=== PATIENT | male | born 1970 | race Caucasian/White ===

== ENCOUNTER 2021-08-26 15:23 | Inpatient (IN) | payer MEDICARE, OTHER ==
[~2021-08-26] VITALS: Ht 172.7 cm; Wt 70.3 kg
[2021-08-26 16:29] LABS: HEMOGLOBIN 12.9 gm/dl (14.0-17.5); RED BLOOD COUNT 4.57 M/UL (4.20-5.50); WHITE BLOOD COUNT 5.9 K/UL (4.5-11.0)
[2021-08-26 17:04] LABS: BUN/CREATININE RATIO 7 (0-10)
[2021-08-26] MEDS ORDERED: GABAPENTIN400 MG PO (22:16)
[2021-08-26] MEDS ORDERED: FUROSEMIDE80 MG PO (22:17)
[2021-08-26] MEDS ORDERED: HYDROCODON-ACE1 EAC2 PO (22:17)
[2021-08-26] MEDS ORDERED: BASAGLAR K100 UNIT/1 SC (22:18)
[2021-08-26] MEDS ORDERED: LISINOPRIL20 MG PO (22:18)
[2021-08-26] MEDS ORDERED: MONTELUKAST SOD10 MG PO (22:18)
[2021-08-26] MEDS ORDERED: SERTRALINE HCL100 MG PO (22:19)
[2021-08-26] MEDS ORDERED: PROCHLORPERAZIN10 MG PO (22:19)
[2021-08-26] MEDS ORDERED: ASPIRIN CHEWABL81 MG PO (22:20)
[2021-08-26] MEDS ORDERED: POTASSIUM CHLO20 ME2 PO (22:20)
[2021-08-26] MEDS ORDERED: NIFEDIPINE ER90 M1 PO (22:21)
[2021-08-26] MEDS ORDERED: COREG 25MG TAB25 MG PO (22:21)
[2021-08-26] MEDS ORDERED: CATAPRES 0.1MG0.1 MG PO (22:21)
[2021-08-26] MEDS ORDERED: METOLAZONE10 MG PO (22:22)
[2021-08-26] MEDS ORDERED: HYDROXYZINE HCL25 MG PO (22:22)
[2021-08-26] MEDS ORDERED: PROTONIX 40 MG40 M1 PO (22:22)
[2021-08-26] MEDS ORDERED: LACTULOSE10 GM/151 PO (22:23)
[2021-08-26] MEDS ORDERED: NOVOLOG FL100 UNIT/1 INJ (22:24)
[2021-08-27 06:56] LABS: HEMOGLOBIN 11.4 gm/dl (14.0-17.5)
[2021-08-27 07:04] LABS: RED BLOOD COUNT 4.07 M/UL (4.20-5.50)
[2021-08-28 09:51] LABS: LDH, BODY FLUID 70 U/L; TOTAL PROTEIN, BODY FLUID 1.7 gm/dL
[2021-08-28 09:58] LABS: BODY FLUID SOURCE PLEURAL
[2021-08-28 09:59] LABS: MONONUCLEAR CELLS 91 (75-100); POLYMORPHONUCLEAR % 9 (0-25); RBC (AUTOMATED) 3400 (0-100000); WBC (AUTOMATED) 123 (0-500)
[2021-08-28] MEDS ORDERED: HYDROCODON-ACE1 EAC2 PO (11:31)
== END 2021-08-28 12:45 | disposition home or self-care (01) | DRG 186 ==
LOC: ER1 15:23 → M/S 08-27 00:18
PROVIDERS: Internal Medicine; Physician Assistant; ADMIT Internal Medicine
PROC: 0W9B3ZZ Drainage of Left Pleural Cavity, Percutaneous Approach (ICD-10-PCS; principal; 2021-08-28)
PROC: BB4BZZZ Ultrasonography of Pleura (ICD-10-PCS; 2021-08-28)
DX: J90 Pleural effusion, not elsewhere classified (principal); J96.01 Acute respiratory failure with hypoxia; N18.6 End stage renal disease; I12.0 Hypertensive chronic kidney disease with stage 5 chronic kidney disease or end stage renal disease; E87.2 Acidosis; D72.10 Eosinophilia, unspecified; E11.21 Type 2 diabetes mellitus with diabetic nephropathy; E11.22 Type 2 diabetes mellitus with diabetic chronic kidney disease; D63.1 Anemia in chronic kidney disease; E87.5 Hyperkalemia; Z79.01 Long term (current) use of anticoagulants; Z79.82 Long term (current) use of aspirin; Z79.4 Long term (current) use of insulin; Z99.2 Dependence on renal dialysis
CPT/HCPCS: 36415; 71045; 71046; 71250; 80048; 80053; 82550; 82553; 82945; 82962; 83605; 83615; 83874; 84157; 84484; 85025; 87205; 89051; 93005; 96374; 99285; J2405

== ENCOUNTER → 2021-09-05 | Outpatient (CLI) | payer MEDICARE, OTHER ==
[~2021-09-05] MED LIST: ASPIRIN CHEWABL81 MG PO; BASAGLAR K100 UNIT/1 SC; CATAPRES 0.1MG0.1 MG PO; COREG 25MG TAB25 MG PO; FUROSEMIDE80 MG PO; GABAPENTIN400 MG PO; HYDROCODON-ACE1 EAC2 PO; HYDROXYZINE HCL25 MG PO; LACTULOSE10 GM/151 PO; LISINOPRIL20 MG PO; METOLAZONE10 MG PO; MONTELUKAST SOD10 MG PO; NIFEDIPINE ER90 M1 PO; NOVOLOG FL100 UNIT/1 INJ; POTASSIUM CHLO20 ME2 PO; PROCHLORPERAZIN10 MG PO; PROTONIX 40 MG40 M1 PO; SERTRALINE HCL100 MG PO
== END ==
LOC: EXRD 10:10
DX: J90 Pleural effusion, not elsewhere classified (principal); R91.8 Other nonspecific abnormal finding of lung field
CPT/HCPCS: 71046

== ENCOUNTER 2021-09-08 15:34 | Inpatient (IN) | payer MEDICARE, OTHER ==
[~2021-09-08] VITALS: Ht 160 cm; Wt 70.3 kg
[~2021-09-08 15:34] MED LIST changes: -NOVOLOG FL100 UNIT/1 INJ; +NOVOLOG FL100 UNIT/1 SQ
[2021-09-08 17:41] LABS: HEMOGLOBIN 11.6 gm/dl (14.0-17.5); RED BLOOD COUNT 4.11 M/UL (4.20-5.50); WHITE BLOOD COUNT 10.1 K/UL (4.5-11.0)
[2021-09-08 18:15] LABS: BUN/CREATININE RATIO 8 (0-10)
--- NOTE | 2021-09-08 22:29 | NUR ---
NOTIFIED DR ROSADO OF PATIENT V/S AND LABS, PROVIDED ALONZO WITH MEDICATIONS THAT HAVE BEEN GIVEN TO PATIENT B/P 215/92, ALONZO STATES NOT TO GIVE ANY OTHER MEDICATION TO START PATIENT ON CARDLEELA MARADIAGA
--- NOTE | 2021-09-08 22:34 | NUR ---
NOTIFIED DR ROSADO OF BLOOD GLUCOSE OF [facility] STATES HOLD GORDON SHABAZZ
[2021-09-09 05:40] LABS: HEMOGLOBIN 10.3 gm/dl (14.0-17.5); WHITE BLOOD COUNT 9.5 K/UL (4.5-11.0)
[2021-09-09 05:43] LABS: RED BLOOD COUNT 3.65 M/UL (4.20-5.50)
[2021-09-09] MEDS ORDERED: LISINOPRIL20 MG PO (09:46)
[2021-09-09] MEDS ORDERED: TRAZODONE HCL50 MG PO (09:47)
[2021-09-11 07:44] LABS: HEMOGLOBIN 11.3 gm/dl (14.0-17.5); WHITE BLOOD COUNT 10.1 K/UL (4.5-11.0)
[2021-09-11 08:00] LABS: RED BLOOD COUNT 4.18 M/UL (4.20-5.50)
[2021-09-11 08:13] LABS: HBSAG SCREEN Negative (Negative)
--- NOTE | 2021-09-11 19:12 | NUR ---
report to Henry ROSA denies questions.
[2021-09-12 06:20] LABS: HEMOGLOBIN 9.4 gm/dl (14.0-17.5); RED BLOOD COUNT 3.39 M/UL (4.20-5.50); WHITE BLOOD COUNT 8.6 K/UL (4.5-11.0)
[2021-09-13 12:14] LABS: HBSAG SCREEN Negative (Negative); HEP A AB, IGM Negative (Negative); HEP B CORE AB, IGM Negative (Negative); HEP C VIRUS AB 0.1 (0.0-0.9)
== END 2021-09-12 16:11 | disposition home or self-care (01) | DRG 291 ==
LOC: ER1 15:34 → CDU 19:08 → CCU 19:08 → MED SURG 4 09-11 19:07
PROVIDERS: Family Medicine; Hospitalist; Internal Medicine; Internal Medicine Nephrology; ADMIT Internal Medicine
PROC: 5A1D70Z Performance of Urinary Filtration, Intermittent, Less than 6 Hours Per Day (ICD-10-PCS; principal; 2021-09-09)
PROC: 5A1D70Z Performance of Urinary Filtration, Intermittent, Less than 6 Hours Per Day (ICD-10-PCS; 2021-09-12)
DX: I13.2 Hypertensive heart and chronic kidney disease with heart failure and with stage 5 chronic kidney disease, or end stage renal disease (principal); N18.6 End stage renal disease; J96.01 Acute respiratory failure with hypoxia; I50.31 Acute diastolic (congestive) heart failure; J90 Pleural effusion, not elsewhere classified; E87.2 Acidosis; Z20.822 Contact with and (suspected) exposure to COVID-19; D63.1 Anemia in chronic kidney disease; E87.5 Hyperkalemia; E11.22 Type 2 diabetes mellitus with diabetic chronic kidney disease; E11.649 Type 2 diabetes mellitus with hypoglycemia without coma; I16.0 Hypertensive urgency; Z99.2 Dependence on renal dialysis; Z79.899 Other long term (current) drug therapy; Z79.4 Long term (current) use of insulin; Z79.82 Long term (current) use of aspirin; Z79.52 Long term (current) use of systemic steroids
CPT/HCPCS: ECHO; 36415; 71045; 80048; 80053; 80074; 82550; 82553; 82803; 82962; 83605; 83735; 83874; 83880; 84100; 84484; 85025; 87040; 87340; 90935; 90937; 93005; 93306; 94664; 96374; 96375; 99285; J0360; J0610; J1644; J1940; J2405; J3480; U0002